=== PATIENT | female | born 1930 | race Caucasian/White ===

== ENCOUNTER 2017-09-16 12:52 | Observation (INO) | payer MEDICARE, BC ==
--- NOTE | 2017-09-16 13:38 | EDM.PDOC ---
ED HPI GENERAL MEDICAL PROBLEM - General Chief Complaint: Gastrointestinal Problem Stated Complaint: N/V diarrhea, dizziness Time Seen by Provider: 09/16/17 13:37 Source of Information: Reports: Patient, Family, Old Records, RN, RN Notes Reviewed History Limitations: Reports: No Limitations - History of Present Illness INITIAL COMMENTS - FREE TEXT/NARRATIVE: Arrives from home by POV with c/o waking this morning with a mild generalized headache, and sudden onset of "room spin" dizziness with severe nausea and vomiting. Pt states the Sx's have been persistent all day, usually when she moves or turns her head. Denies fever, chills, falls, or any other Sx's. Onset: Today, Sudden Duration: Constant, Waxing/Waning Location: Reports: Generalized Severity: Severe Improves with: Reports: Immobilization Worsens with: Reports: Movement Associated Symptoms: Reports: No Other Symptoms - Related Data Allergies Allergy/AdvReac Type Severity Reaction Status Date / Time amoxicillin trihydrate Allergy Diarrhea Verified 09/16/17 13:58 [From Augmentin] potassium clavulanate Allergy Diarrhea Verified 09/16/17 13:58 [From Augmentin] Ejunkvl-Sur-Xxd Reductase Allergy Muscle Verified 09/16/17 13:58 Inhibitor Aches Sulfa (Sulfonamide Allergy Rash Verified 09/16/17 13:58 Antibiotics) Home Meds: Home Meds Butalbital/Aspirin/Caffeine [Fiorinal 50-325-40 MG] 1 tab PO BID PRN 04/29/15 [ History] Calcium Carbonate [Calcium] 1,200 mg PO DAILY 04/29/15 [History] Fenofibrate,Micronized [Fenofibrate] 134 mg PO DAILY 04/29/15 [History] Fish Oil/[place]-3 Fatty Acids [Fish Oil 1,000 MG] 2 cap PO DAILY 04/29/15 [ History] Levothyroxine [Synthroid] 100 mcg PO DAILY 04/29/15 [History] Lutein/Minerals/Vit A,C & E [I-Dorothy] 1 tab PO DAILY 04/29/15 [History] amLODIPine [Norvasc] 10 mg PO DAILY 04/29/15 [History] Isosorbide Mononitrate [Isosorbide Mononitrate ER] 30 mg PO DAILY 09/16/17 [ History] Past Medical History Other HEENT History: WEARS CORRECTIVE LENSES Cardiovascular History: Reports: Angina Other Endocrine/Metabolic History: HYPOTHYRIODISM - Past Surgical History Other HEENT Surgeries/Procedures: RIGHT EYE Other Oncologic Surgeries/Procedures: BENIGN BIOPSY BILAT BREAST Social & Family History - Family History Family Medical History: Noncontributory - Tobacco Use Smoking Status *Q: Never Smoker Used Tobacco, but Quit: No Second Hand Smoke Exposure: No - Recreational Drug Use Recreational Drug Use: No - Living Situation & Occupation Living situation: Reports: , Alone Occupation: Retired ED ROS GENERAL - Review of Systems Review Of Systems: ROS reveals no pertinent complaints other than HPI. ED EXAM, GENERAL - Physical Exam Exam: See Below Exam Limited By: No Limitations General Appearance: Alert, WD/WN, No Apparent Distress, Other (frail, elderly appearing) Eye Exam: Bilateral Eye: EOMI, Nystagmus (lateral gaze), PERRL Ears: Normal External Exam, Normal Canal, Hearing Grossly Normal, Normal TMs Nose: Normal Inspection, Normal Mucosa, No Blood Throat/Mouth: Normal Lips, Normal Teeth, Normal Gums, Normal Oropharynx, Normal Voice, No Airway Compromise, Other (dry oral membranes) Head: Atraumatic, Normocephalic Neck: Normal Inspection, Supple, Non-Tender, Full Range of Motion. No: Carotid Bruit, Lymphadenopathy (L), Lymphadenopathy (R) Respiratory/Chest: No Respiratory Distress, Lungs Clear, Normal Breath Sounds, No Accessory Muscle Use, Chest Non-Tender Cardiovascular: Regular Rate, Rhythm, No Edema GI/Abdominal: Normal Bowel Sounds, Soft, No Distention, Tender (mild epigastric tenderness). No: Guarding, Rigid, Rebound (Female) Exam: Deferred Rectal (Female) Exam: Deferred Back Exam: Normal Inspection. No: CVA Tenderness (L), CVA Tenderness (R) Extremities: Normal Inspection, Normal Range of Motion, Non-Tender, Normal Capillary Refill, No Pedal Edema Neurological: Alert, Oriented, No Motor/Sensory Deficits Psychiatric: Normal Affect, Normal Mood Skin Exam: Warm, Dry, Intact, Normal Color, No Rash EKG INTERPRETATION EKG Date: 09/16/17 Time: 14:20 Rhythm: Other (SR) Rate (Beats/Min): 79 [place]: Normal P-Wave: Present QRS: Other (1st AV block, LAFB, PAC) ST-T: Normal QT: Normal Comparison: NA - No Prior EKG Course - Vital Signs Last Recorded V/S: Last Vital Signs Temp 36.7 C 09/16/17 13:30 Pulse 82 09/16/17 13:30 Resp 12 09/16/17 13:30 BP 117/67 09/16/17 13:30 Pulse Ox 94 L 09/16/17 13:30 - Orders/Labs/Meds Orders: Active Orders 24 hr Category Date Time Status EKG 12 Lead [EKG Documentation Completion] [] STAT Care 09/16/17 14:12 Active Peripheral IV Care [RC] . DIRECTED Care 09/16/17 14:10 Active UA W/MICROSCOPIC [URIN] Stat Lab 09/16/17 15:08 Received Sodium Chloride 0.9% [Normal Saline] 1,000 ml Med 09/16/17 14:15 Active IV ASDIRECTED Sodium Chloride 0.9% [Saline Flush] Med 09/16/17 14:10 Active 10 ml FLUSH ASDIRECTED PRN Peripheral IV Insertion Adult [OM.PC] Stat Oth 09/16/17 14:09 Ordered Medication Orders Sodium Chloride (Normal Saline) 1,000 mls @ 200 mls/hr IV ASDIRECTED DONTA Last Admin: 09/16/17 14:27 Dose: 200 mls/hr Sodium Chloride (Saline Flush) 10 ml FLUSH ASDIRECTED PRN PRN Reason: Keep Vein Open Last Admin: 09/16/17 14:27 Dose: 10 ml Labs: Laboratory Tests 09/16/17 09/16/17 09/16/17 Range/Units 14:20 14:20 14:20 WBC 6.9 (5.0-10.0) 10^3/uL RBC 4.07 L (4.2-5.4) 10^6/uL Hgb 12.5 (12.0-16.0) g/dL Hct 38.3 (37.0-47.0) % MCV 94.1 (80-100) fL MCH 30.7 (27.0-34.0) pg MCHC 32.6 L (33.0-35.0) g/dL Plt Count 214 (150-450) 10^3/uL Neut % (Auto) 82.3 H (42.2-75.2) % Lymph % (Auto) 10.9 L (20.5-50.1) % [place] % (Auto) 6.5 (2-8) % Eos % (Auto) 0.0 L (1.0-3.0) % Baso % (Auto) 0.3 (0.0-1.0) % Sodium 137 (135-145) mmol/L Potassium 4.0 (3.6-5.0) mmol/L Chloride 104 (101-111) mmol/L Carbon Dioxide 23.0 (21.0-31.0) mmol/L Anion Gap 14.0 BUN 19 H (7-18) mg/dL Creatinine 0.7 (0.6-1.3) mg/dL Est Cr Clr Drug Dosing 48.89 mL/min Estimated GFR (MDRD) > 60 BUN/Creatinine Ratio 27.14 Glucose 152 H (74-105) mg/dL Calcium 9.2 (8.4-10.2) mg/dl Magnesium 1.8 (1.8-2.5) mg/dL Total Bilirubin 0.6 (0.2-1.0) mg/dL AST 21 (10-42) IU/L ALT 18 (10-60) IU/L Alkaline Phosphatase 33 L (42-121) IU/L Troponin I < 0.02 (0.00-0.02) ng/ml C-Reactive Protein < 0.5 (0.0-1.3) mg/dL Total Protein 6.2 L (6.7-8.2) g/dl Albumin 3.6 (3.2-5.5) g/dl Globulin 2.6 Albumin/Globulin Ratio 1.38 Amylase 43 (28-100) U/L Lipase 19 L (22-51) U/L TSH, Ultra Sensitive 0.13 L (0.45-5.33) uIu/mL Meds: Medications Generic Name Dose Route Start Last Admin Trade Name Freq PRN Reason Stop Dose Admin Sodium Chloride 1,000 mls @ 200 mls/hr 09/16/17 14:15 09/16/17 14:27 Normal Saline IV 200 mls/hr ASDIRECTED DONTA Administration Sodium Chloride 10 ml 09/16/17 14:10 09/16/17 14:27 Saline Flush FLUSH 10 ml ASDIRECTED PRN Administration Keep Vein Open Discontinued Medications Generic Name Dose Route Start Last Admin Trade Name Freq PRN Reason Stop Dose Admin Dexamethasone 20 mg 09/16/17 15:20 Dexamethasone IVPUSH 09/16/17 15:21 ONETIME ONE Diazepam 2.5 mg 09/16/17 15:19 Valium IVPUSH 09/16/17 15:20 ONETIME ONE Meclizine HCl 25 mg 09/16/17 15:20 Antivert PO 09/16/17 15:21 ONETIME ONE Ondansetron HCl 4 mg 09/16/17 14:12 09/16/17 14:27 Zofran IV 09/16/17 14:13 4 mg ONETIME ONE Administration - Radiology Interpretation Free Text/Narrative:: CT Head: no acute bleed or CVA, chronic microvasc. disease, see Rad. report. Departure - Departure Time of Disposition: 15:37 (admitted to Dr. Doty) Disposition: Refer to Observation Clinical Impression: Vertigo, Vomiting, History of hypothyroidism, Low thyroid stimulating hormone ( TSH) level - Discharge Information Forms: ED Department Discharge - My Orders Last 24 Hours: My Active Orders 09/16/17 14:09 Peripheral IV Insertion Adult [OM.PC] Stat 09/16/17 14:10 Peripheral IV Care [RC] . DIRECTED Sodium Chloride 0.9% [Saline Flush] 10 ml FLUSH ASDIRECTED PRN 09/16/17 14:12 EKG 12 Lead [EKG Documentation Completion] [RC] STAT 09/16/17 14:15 Sodium Chloride 0.9% [Normal Saline] 1,000 ml IV ASDIRECTED 09/16/17 15:08 UA W/MICROSCOPIC [URIN] Stat - Assessment/Plan Last 24 Hours: My Active Orders 09/16/17 14:09 Peripheral IV Insertion Adult [OM.PC] Stat 09/16/17 14:10 Peripheral IV Care [RC] . DIRECTED Sodium Chloride 0.9% [Saline Flush] 10 ml FLUSH ASDIRECTED PRN 09/16/17 14:12 EKG 12 Lead [EKG Documentation Completion] [RC] STAT 09/16/17 14:15 Sodium Chloride 0.9% [Normal Saline] 1,000 ml IV ASDIRECTED 09/16/17 15:08 UA W/MICROSCOPIC [URIN] Stat
[2017-09-16] MEDS ORDERED: Sodium Chloride 0.9% 10 ML Syringe FLUSH PRN (14:10)
[2017-09-16] MEDS ORDERED: Ondansetron 4 MG/2 ML SDV IV ONE (14:12)
[2017-09-16] MEDS ORDERED: Sodium Chloride 0.9% 1,000 ML IV SCH ×2 (14:15→16:45)
[2017-09-16 14:52] LABS: CHLORIDE,CL 104 mmol/L (101-111); SODIUM,NA 137 mmol/L (135-145)
--- NOTE | 2017-09-16 15:03 | CT ---
Clinical history: 87-year-old female with vomiting and dizziness. Scan technique: Volume acquisition of data emergency unenhanced CT scan of the brain obtained with pa tient lying supine on the Siemens multi slice scanner [place], [place] . All data archived in the PACS system for storage and study (bone/brain windows). No previous CT or MRI images of the head and immediately available at this institution. Interpretation: Uniformly thick bony calvarium. Symmetric clear pneumatization of the paranasal and m astoid sinuses. Symmetric amador-white matter pattern with age appropriate atrophy and underlying mirror-image normal v entricular system. Physiologic midline pineal and symmetric choroid plexus calcifications. Subtle decreased attenuation in the posterior limb of the internal capsule, bilaterally and other ran domly scattered tiny microvascular ischemic changes. Cerebellar atrophy. Brainstem unremarkable. No abnormal extracerebral/intracranial epidural or subdural hematoma. No supratentorial or posterior fossa mass lesion. No sign of acute intracerebral/intraventricular/sub arachnoid bleed. CONCLUSION: Chronic microvascular ischemic changes and age-appropriate atrophy. No intracranial mass, hydrocephalus or evidence of acute bleed.
[2017-09-16] MEDS ORDERED: Meclizine 12.5 MG Tab PO ONE (15:20)
[2017-09-16] MEDS ORDERED: Dexamethasone 4 MG/ML SDV IVPUSH ONE (15:20)
[2017-09-16] MEDS ORDERED: Diazepam 5 MG Tab PO PRN (16:22)
[2017-09-16] MEDS ORDERED: LORazepam 0.5 MG Tab PO PRN ×2 (16:24→16:37)
[2017-09-16] MEDS ORDERED: Metoclopramide 10 MG Tab PO PRN (16:24)
[2017-09-16] MEDS ORDERED: Ondansetron 4 MG/2 ML SDV IVPUSH PRN (16:40)
[2017-09-16] MEDS ORDERED: Zolpidem 5 MG Tab PO PRN (16:40)
--- NOTE | 2017-09-16 16:50 | PCM.HP ---
H&P History of Present Illness - General Date of Service: 09/16/17 Admit Problem/Dx: Admission Diagnosis/Problem Admission Diagnosis/Problem Vertigo Source of Information: Patient, Provider (ER) - History of Present Illness Initial Comments - Free Text/Narative: The patient is an 87-year-old lady with a history of hypertension, anxiety, coronary artery disease, dyslipidemia. The patient developed sudden onset of vertigo associated with nausea. The vertigo is worse when moving the head sitting up. Better when not moving head. has nausea, had vomiting after eating No cough, no sore throat, no earache, no tinnitus. - Related Data Allergies/Adverse Reactions: Allergies Allergy/AdvReac Type Severity Reaction Status Date / Time amoxicillin trihydrate Allergy Diarrhea Verified 09/16/17 16:04 [From Augmentin] potassium clavulanate Allergy Diarrhea Verified 09/16/17 16:04 [From Augmentin] Jckferu-Ytd-Ovb Reductase Allergy Muscle Verified 09/16/17 16:04 Inhibitor Aches Sulfa (Sulfonamide Allergy Rash Verified 09/16/17 16:04 Antibiotics) Home Medications: Home Meds Butalbital/Aspirin/Caffeine [Fiorinal 50-325-40 MG] 1 tab PO BID PRN 04/29/15 [ History] Calcium Carbonate [Calcium] 1,200 mg PO DAILY 04/29/15 [History] Fish Oil/[place]-3 Fatty Acids [Fish Oil 1,000 MG] 2 cap PO DAILY 04/29/15 [ History] Lutein/Minerals/Vit A,C & E [I-Dorothy] 1 tab PO DAILY 04/29/15 [History] amLODIPine [Norvasc] 10 mg PO DAILY 04/29/15 [History] Fenofibrate Nanocrystallized [Fenofibrate] 145 mg PO DAILY 09/16/17 [History] Isosorbide Mononitrate [Isosorbide Mononitrate ER] 30 mg PO DAILY 09/16/17 [ History] LORazepam 0.5 mg PO .PRN PRN 09/16/17 [History] Levothyroxine 112 mcg PO DAILY 09/16/17 [History] Vitamin B Complex 1 each PO DAILY 09/16/17 [History] Past Medical History Other HEENT History: WEARS CORRECTIVE LENSES Cardiovascular History: Reports: Angina Other Endocrine/Metabolic History: HYPOTHYRIODISM - Past Surgical History Other HEENT Surgeries/Procedures: RIGHT EYE Other Oncologic Surgeries/Procedures: BENIGN BIOPSY BILAT BREAST Social & Family History - Family History Family Medical History: Noncontributory - Tobacco Use Smoking Status *Q: Never Smoker Used Tobacco, but Quit: No Second Hand Smoke Exposure: No - Caffeine Use Caffeine Use: Reports: Coffee, Soda - Recreational Drug Use Recreational Drug Use: No - Living Situation & Occupation Living situation: Reports: , Alone Occupation: Retired H&P Review of Systems - Review of Systems: Review Of Systems: See Below General: Denies: Fever, Chills Pulmonary: Denies: Shortness of Breath Cardiovascular: Denies: Chest Pain Gastrointestinal: Reports: Nausea. Denies: Abdominal Pain Psychiatric: Denies: Confusion Neurological: Reports: Headache (Earlier today, resolved by now), Other (Vertigo ). Denies: Numbness, Paresthesia, Seizure, Syncope, Tremors Exam - Exam Exam: See Below - Vital Signs Vital Signs: Last Vital Signs Temp 37.0 C 09/16/17 16:00 Pulse 87 09/16/17 16:00 Resp 20 09/16/17 16:00 BP 124/75 09/16/17 16:00 Pulse Ox 94 L 09/16/17 16:00 Weight: 71.214 kg - Exam General: Alert, Oriented Neck: Supple Lungs: Clear to Auscultation, Normal Respiratory Effort Cardiovascular: Regular Rate, Regular Rhythm GI/Abdominal Exam: Normal Bowel Sounds, Soft, Non-Tender Extremities: No Pedal Edema Skin: Warm, Dry Neurological: Cranial Nerves Intact, Strength Equal Bilateral, Normal Speech, Sensation Intact Neuro Extensive - Mental Status: Alert, Oriented x3 Neuro Extensive - Motor, Sensory, Reflexes: Other (Nystagmus). No: Receptive Aphasia, Expressive Aphasia, Tremor Psychiatric: Alert, Normal Affect, Normal Mood - Patient Data Result Diagrams: 09/16/17 14:20 09/16/17 14:20 *Q Meaningful Use (ADM) - VTE *Q VTE Criteria *Q: - Stroke *Q Stroke Criteria *Q: - AMI *Q AMI Criteria *Q: - Problem List (1) Vertigo SNOMED Code(s): 461211825 ICD Code: R42 - DIZZINESS AND GIDDINESS Status: Acute Current Visit: Yes (2) Vomiting SNOMED Code(s): 972597898 ICD Code: R11.10 - VOMITING, UNSPECIFIED Status: Acute Current Visit: Yes (3) History of hypothyroidism SNOMED Code(s): 876920813 ICD Code: Z86.39 - PERSONAL HISTORY OF ENDO, NUTRITIONAL AND METABOLIC DISEASE Status: Acute Current Visit: Yes Problem List Initiated/Reviewed/Updated: Yes Orders Last 24hrs: Active Orders 24 hr Category Date Time Status Patient Status [ADT] Routine ADT 09/16/17 16:40 Ordered Antiembolic Devices [RC] PER UNIT ROUTINE Care 09/16/17 16:42 Ordered Oxygen Therapy [RC] PRN Care 09/16/17 16:40 Ordered Up With Assistance [RC] ASDIRECTED Care 09/16/17 16:40 Ordered VTE/DVT Education [RC] PER UNIT ROUTINE Care 09/16/17 16:40 Ordered Vital Signs [RC] Q4H Care 09/16/17 16:40 Ordered Regular Diet [DIET] Diet 09/16/17 Dinner Ordered BASIC METABOLIC PANEL,BMP [CHEM] AM Lab 09/17/17 05:15 Ordered CBC WITH AUTO DIFF [HEME] AM Lab 09/17/17 05:15 Ordered Acetaminophen [Tylenol] Med 09/16/17 16:40 Ordered 650 mg PO Q4H PRN Aspirin Med 09/17/17 08:00 Ordered 81 mg PO WITHBREAKFAST Calcium Carbonate Med 09/17/17 09:00 Ordered 1,200 mg PO DAILY Fenofibrate Nanocrystallized [Tricor] Med 09/17/17 09:00 Ordered 145 mg PO DAILY Heparin Sodium Med 09/16/17 22:00 Ordered 5,000 units SUBCUT Q8HR Isosorbide Mononitrate [Imdur] Med 09/17/17 09:00 Ordered 30 mg PO DAILY LORazepam [Ativan] Med 09/16/17 16:37 Ordered 0.5 mg PO Q4H PRN Levothyroxine Med 09/17/17 06:00 Ordered 100 mcg PO ACBRK Lutein/Minerals/Vit A,C & E [I-Dorothy] Med 09/17/17 09:00 Ordered 1 tab PO DAILY Meclizine [Antivert] Med 09/16/17 21:00 Ordered 12.5 mg PO TID Metoclopramide [Reglan] Med 09/16/17 16:24 Ordered 10 mg PO Q8H PRN Ondansetron [Zofran] Med 09/16/17 16:40 Ordered 4 mg IVPUSH Q6H PRN Sodium Chloride 0.9% [Normal Saline] 1,000 ml Med 09/16/17 16:45 Ordered IV ASDIRECTED Zolpidem [Ambien] Med 09/16/17 16:40 Ordered 5 mg PO BEDTIME PRN amLODIPine [Norvasc] Med 09/17/17 09:00 Ordered 10 mg PO DAILY Antiembolic Hose [OM.PC] Per Unit Routine Oth 09/16/17 16:41 Ordered Resuscitation Status Routine Resus Stat 09/16/17 16:40 Ordered Medication Orders Acetaminophen (Tylenol) 650 mg PO Q4H PRN PRN Reason: Pain (Mild 1-3)/fever Amlodipine Besylate (Norvasc) 10 mg PO DAILY [facility] Aspirin (Aspirin) 81 mg PO WITHBREAKFAST [facility] Calcium Carbonate/Glycine (Tums) 1,000 mg PO DAILY [facility] Fenofibrate (Tricor) 145 mg PO DAILY [facility] Heparin Sodium (Porcine) (Heparin Sodium) 5,000 units SUBCUT Q8HR [facility] Sodium Chloride (Normal Saline) 1,000 mls @ 200 mls/hr IV ASDIRECTED DONTA Last Admin: 09/16/17 14:27 Dose: 200 mls/hr Sodium Chloride (Normal Saline) 1,000 mls @ 75 mls/hr IV ASDIRECTED [facility] Isosorbide Mononitrate (Imdur) 30 mg PO ACBRK [facility] Levothyroxine Sodium (Levothyroxine) 100 mcg PO ACBRK [facility] Lorazepam (Ativan) 0.5 mg PO Q4H PRN PRN Reason: Anxiety, vertigo, nausea Meclizine HCl (Antivert) 12.5 mg PO TID [facility] Metoclopramide HCl (Reglan) 10 mg PO Q8H PRN PRN Reason: nausea, vertigo Multivitamins/Minerals (I-Dorothy) 1 each PO DAILY [facility] Ondansetron HCl (Zofran) 4 mg IVPUSH Q6H PRN PRN Reason: Nausea/Vomiting Sodium Chloride (Saline Flush) 10 ml FLUSH ASDIRECTED PRN PRN Reason: Keep Vein Open Last Admin: 09/16/17 14:27 Dose: 10 ml Zolpidem Tartrate (Ambien) 5 mg PO BEDTIME PRN PRN Reason: Sleep Assessment/Plan Comment:: The patient is an 87-year-old lady with a history of hypertension, anxiety, coronary artery disease, dyslipidemia. The patient developed sudden onset of vertigo associated with nausea. The vertigo is worse when moving the head sitting up. Better when not moving head. has nausea, had vomiting after eating No cough, no sore throat, no earache, no tinnitus. In the ER the patient received diazepam, meclizine, dexamethasone. This resulted in mild improvement. #1 vertigo, nausea Likely due to benign positional vertigo Less likely stroke, middle ear infection. Will treat the patient with meclizine, metoclopramide, Ativan when necessary Will hydrate the patient #2 coronary artery disease Treat with aspirin, Imdur, #3 hypertension Continue Norvasc #4 hypothyroidism TSH is slightly low Will decrease the Synthroid Follow as outpatient #4 DVT prophylaxis Will use subcutaneous heparin
[2017-09-16] MEDS: Meclizine 12.5 MG Tab PO SCH (21:36)
[2017-09-16] MEDS: Heparin Sodium 5,000 Units/ML Vial SUBCUT SCH (21:36)
[2017-09-16] MEDS: Acetaminophen 325 MG Tab PO PRN (21:37)
[2017-09-17] MEDS ORDERED: Levothyroxine 112 MCG Tab PO SCH (06:00)
[2017-09-17 06:31] LABS: CHLORIDE,CL 105 mmol/L (101-111); SODIUM,NA 137 mmol/L (135-145)
[2017-09-17] MEDS: Heparin Sodium 5,000 Units/ML Vial SUBCUT SCH ×3 (07:14→21:15)
[2017-09-17] MEDS: Levothyroxine 112 MCG Tab PO SCH (07:15)
[2017-09-17] MEDS: Acetaminophen 325 MG Tab PO PRN ×3 (07:16→21:16)
[2017-09-17] MEDS: Isosorbide Mononitrate 30 MG Tab.ER PO SCH (07:47)
[2017-09-17] MEDS: Aspirin 81 MG Tab.Chew PO SCH (07:53)
[2017-09-17] MEDS: Meclizine 12.5 MG Tab PO SCH ×3 (08:48→21:16)
[2017-09-17] MEDS: Calcium Carbonate 500 MG Tab.Chew PO SCH (08:48)
[2017-09-17] MEDS: amLODIPine 5 MG Tab PO SCH (08:48)
[2017-09-17] MEDS: Fenofibrate Nanocrystallized 145 MG Tab PO SCH (08:49)
[2017-09-17] MEDS: Lutein/Minerals/Vit A,C & E Tab PO SCH (08:49)
--- NOTE | 2017-09-17 10:18 | PCM.PN ---
- General Info Date of Service: 09/17/17 Admission Dx/Problem (Free Text): Admission Diagnosis/Problem Admission Diagnosis/Problem Vertigo Subjective Update: Feeling better but still has moderate vertigo that is worse with activity. Started before admission. Less associated nausea. No abdominal pain. No motor weakness - Review of Systems General: Denies: Fever Pulmonary: Denies: Shortness of Breath Cardiovascular: Denies: Chest Pain, Palpitations - Patient Data Vitals - Most Recent: Last Vital Signs Temp 36.9 C 09/17/17 07:51 Pulse 62 09/17/17 07:51 Resp 16 09/17/17 07:51 BP 134/62 09/17/17 08:48 Pulse Ox 98 09/17/17 07:51 Weight - Most Recent: 71.214 kg I&O - Last 24 Hours: Intake & Output 09/16/17 09/17/17 09/17/17 22:59 06:59 14:59 Intake Total 125 972 Output Total 800 400 Balance -675 572 Lab Results Last 24 Hours: Laboratory Results - last 24 hr 09/17/17 09/17/17 Range/Units 05:25 05:25 WBC 6.3 (5.0-10.0) 10^3/uL RBC 3.77 L (4.2-5.4) 10^6/uL Hgb 11.6 L (12.0-16.0) g/dL Hct 35.6 L (37.0-47.0) % MCV 94.4 (80-100) fL MCH 30.8 (27.0-34.0) pg MCHC 32.6 L (33.0-35.0) g/dL Plt Count 225 (150-450) 10^3/uL Neut % (Auto) 83.1 H (42.2-75.2) % Lymph % (Auto) 11.9 L (20.5-50.1) % [place] % (Auto) 4.8 (2-8) % Eos % (Auto) 0.0 L (1.0-3.0) % Baso % (Auto) 0.2 (0.0-1.0) % Sodium 137 (135-145) mmol/L Potassium 3.9 (3.6-5.0) mmol/L Chloride 105 (101-111) mmol/L Carbon Dioxide 24.0 (21.0-31.0) mmol/L Anion Gap 11.9 BUN 13 (7-18) mg/dL Creatinine 0.6 (0.6-1.3) mg/dL Est Cr Clr Drug Dosing 57.04 mL/min Estimated GFR (MDRD) > 60 Glucose 108 H (74-105) mg/dL Calcium 8.3 L (8.4-10.2) mg/dl Med Orders - Current: Current Medications Acetaminophen (Tylenol) 650 mg PO Q4H PRN PRN Reason: Pain (Mild 1-3)/fever Last Admin: 09/17/17 07:16 Dose: 650 mg Amlodipine Besylate (Norvasc) 10 mg PO DAILY [facility] Last Admin: 09/17/17 08:48 Dose: 10 mg Aspirin (Aspirin) 81 mg PO WITHBREAKFAST [facility] Last Admin: 09/17/17 07:53 Dose: 81 mg Calcium Carbonate/Glycine (Tums) 1,000 mg PO DAILY [facility] Last Admin: 09/17/17 08:48 Dose: 1,000 mg Fenofibrate (Tricor) 145 mg PO DAILY [facility] Last Admin: 09/17/17 08:49 Dose: 145 mg Heparin Sodium (Porcine) (Heparin Sodium) 5,000 units SUBCUT Q8HR [facility] Last Admin: 09/17/17 07:14 Dose: 5,000 units Sodium Chloride (Normal Saline) 1,000 mls @ 200 mls/hr IV ASDIRECTED [facility] Last Admin: 09/16/17 14:27 Dose: 200 mls/hr Sodium Chloride (Normal Saline) 1,000 mls @ 75 mls/hr IV ASDIRECTED [facility] Last Admin: 09/17/17 01:54 Dose: 75 mls/hr Isosorbide Mononitrate (Imdur) 30 mg PO ACBRK [facility] Last Admin: 09/17/17 07:47 Dose: 30 mg Levothyroxine Sodium (Levothyroxine) 100 mcg PO ACBRK [facility] Last Admin: 09/17/17 07:15 Dose: 100 mcg Lorazepam (Ativan) 0.5 mg PO Q4H PRN PRN Reason: Anxiety, vertigo, nausea Meclizine HCl (Antivert) 12.5 mg PO TID [facility] Last Admin: 09/17/17 08:48 Dose: 12.5 mg Metoclopramide HCl (Reglan) 10 mg PO Q8H PRN PRN Reason: nausea, vertigo Multivitamins/Minerals (I-Dorothy) 1 each PO DAILY DONTA Last Admin: 09/17/17 08:49 Dose: 1 each Ondansetron HCl (Zofran) 4 mg IVPUSH Q6H PRN PRN Reason: Nausea/Vomiting Sodium Chloride (Saline Flush) 10 ml FLUSH ASDIRECTED PRN PRN Reason: Keep Vein Open Last Admin: 09/16/17 14:27 Dose: 10 ml Zolpidem Tartrate (Ambien) 5 mg PO BEDTIME PRN PRN Reason: Sleep Discontinued Medications Dexamethasone (Dexamethasone) 20 mg IVPUSH ONETIME ONE Stop: 09/16/17 15:21 Last Admin: 09/16/17 15:36 Dose: 20 mg Diazepam (Valium) 2.5 mg IVPUSH ONETIME ONE Stop: 09/16/17 15:20 Last Admin: 09/16/17 15:36 Dose: 2.5 mg Diazepam (Valium.) 5 mg PO TID PRN PRN Reason: vertigo Levothyroxine Sodium (Levothyroxine) 112 mcg PO ACBRK DONTA Lorazepam (Ativan) 0.5 mg PO .PRN PRN PRN Reason: Anxiety Meclizine HCl (Antivert) 25 mg PO ONETIME ONE Stop: 09/16/17 15:21 Last Admin: 09/16/17 15:36 Dose: 25 mg Ondansetron HCl (Zofran) 4 mg IV ONETIME ONE Stop: 09/16/17 14:13 Last Admin: 09/16/17 14:27 Dose: 4 mg - Exam General: Alert, Oriented Neck: Supple Lungs: Clear to Auscultation, Normal Respiratory Effort Cardiovascular: Regular Rate, Regular Rhythm Extremities: No Pedal Edema - Problem List & Annotations (1) Vertigo SNOMED Code(s): 858313090 Code(s): R42 - DIZZINESS AND GIDDINESS Status: Acute Current Visit: Yes (2) Vomiting SNOMED Code(s): 758006292 Code(s): R11.10 - VOMITING, UNSPECIFIED Status: Acute Current Visit: Yes (3) History of hypothyroidism SNOMED Code(s): 562743045 Code(s): Z86.39 - PERSONAL HISTORY OF ENDO, NUTRITIONAL AND METABOLIC DISEASE Status: Acute Current Visit: Yes - Problem List Review Problem List Initiated/Reviewed/Updated: Yes - Plan Plan:: The patient is an 87-year-old lady with a history of hypertension, anxiety, coronary artery disease, dyslipidemia. The patient developed sudden onset of vertigo associated with nausea. The vertigo is worse when moving the head sitting up. Better when not moving head. has nausea, had vomiting after eating No cough, no sore throat, no earache, no tinnitus. In the ER the patient received diazepam, meclizine, dexamethasone. This resulted in mild improvement. #1 vertigo, nausea Likely due to benign positional vertigo Less likely stroke, middle ear infection. Appears improved Will continue to treat the patient with meclizine, metoclopramide, Ativan when necessary Will stop IVF #2 coronary artery disease Treat with aspirin, Imdur, #3 hypertension Continue Norvasc #4 hypothyroidism TSH is slightly low Decreased the Synthroid Follow as outpatient #4 DVT prophylaxis Will use subcutaneous heparin
[2017-09-18] MEDS: Heparin Sodium 5,000 Units/ML Vial SUBCUT SCH (06:30)
[2017-09-18] MEDS: Levothyroxine 112 MCG Tab PO SCH (06:31)
[2017-09-18] MEDS: Isosorbide Mononitrate 30 MG Tab.ER PO SCH (06:44)
[2017-09-18 07:36] VITALS: BP 121/70
[2017-09-18] MEDS: amLODIPine 5 MG Tab PO SCH (08:32)
[2017-09-18] MEDS: Calcium Carbonate 500 MG Tab.Chew PO SCH (08:33)
[2017-09-18] MEDS: Lutein/Minerals/Vit A,C & E Tab PO SCH (08:33)
[2017-09-18] MEDS: Aspirin 81 MG Tab.Chew PO SCH (08:33)
[2017-09-18] MEDS: Meclizine 12.5 MG Tab PO SCH (08:33)
[2017-09-18] MEDS: Fenofibrate Nanocrystallized 145 MG Tab PO SCH (08:33)
[2017-09-18] MEDS: Acetaminophen 325 MG Tab PO PRN (08:35)
--- NOTE | 2017-09-18 10:06 | PCM.DCSUM1 ---
Discharge Summary - Hospital Course Free Text/Narrative:: The patient is an 87-year-old lady with a history of hypertension, anxiety, coronary artery disease, dyslipidemia. The patient developed sudden onset of vertigo associated with nausea. The vertigo was worse when moving the head, sitting up. Better when not moving head. had nausea, had vomiting after eating No cough, no sore throat, no earache, no tinnitus. In the ER the patient received diazepam, meclizine, dexamethasone. This resulted in mild improvement. #1 vertigo, nausea Likely due to benign positional vertigo Less likely stroke, middle ear infection. much improved Treated the patient with meclizine, metoclopramide, Ativan when necessary #2 coronary artery disease Treat with aspirin, Imdur, #3 hypertension Continue Norvasc #4 hypothyroidism TSH is slightly low Decreased the Synthroid Follow as outpatient - Discharge Data Discharge Date: 09/18/17 Discharge Disposition: Home, Self-Care 01 Condition: Good - Discharge Diagnosis/Problem(s) (1) Vertigo SNOMED Code(s): 086113732 ICD Code: R42 - DIZZINESS AND GIDDINESS Status: Acute Current Visit: Yes (2) Vomiting SNOMED Code(s): 795309266 ICD Code: R11.10 - VOMITING, UNSPECIFIED Status: Acute Current Visit: Yes (3) History of hypothyroidism SNOMED Code(s): 527207698 ICD Code: Z86.39 - PERSONAL HISTORY OF ENDO, NUTRITIONAL AND METABOLIC DISEASE Status: Acute Current Visit: Yes - Discharge Plan Prescriptions/Med Rec: Aspirin 81 mg PO WITHBREAKFAST #30 tab.chew Levothyroxine Sodium [Levo-T] 100 mcg PO DAILY #30 tablet Meclizine [Antivert] 12.5 mg PO TID PRN #15 tablet PRN Reason: dizzy Home Medications: Home Meds Butalbital/Aspirin/Caffeine [Fiorinal 50-325-40 MG] 1 tab PO BID PRN 04/29/15 [ History] Calcium Carbonate [Calcium] 1,200 mg PO DAILY 04/29/15 [History] Fish Oil/[place]-3 Fatty Acids [Fish Oil 1,000 MG] 2 cap PO DAILY 04/29/15 [ History] Lutein/Minerals/Vit A,C & E [I-Dorothy] 1 tab PO DAILY 04/29/15 [History] amLODIPine [Norvasc] 10 mg PO DAILY 04/29/15 [History] Fenofibrate Nanocrystallized [Fenofibrate] 145 mg PO DAILY 09/16/17 [History] Isosorbide Mononitrate [Isosorbide Mononitrate ER] 30 mg PO DAILY 09/16/17 [ History] LORazepam 0.5 mg PO .PRN PRN 09/16/17 [History] Vitamin B Complex 1 each PO DAILY 09/16/17 [History] Aspirin 81 mg PO WITHBREAKFAST #30 tab.chew 09/18/17 [Rx] Levothyroxine Sodium [Levo-T] 100 mcg PO DAILY #30 tablet 09/18/17 [Rx] Meclizine [Antivert] 12.5 mg PO TID PRN #15 tablet 09/18/17 [Rx] Referrals: Mahogany Medina, RECYCLING OPERATOR [Primary Care Provider] - (in 2-3 days) - General Info Date of Service: 09/18/17 Subjective Update: Feeling well. Vertigo has resolved. ambulating steady. No nausea. No abdominal pain. No motor weakness Functional Status: Reports: Pain Controlled - Patient Data Vitals - Most Recent: Last Vital Signs Temp 37.0 C 09/18/17 07:35 Pulse 62 09/18/17 07:35 Resp 20 09/18/17 07:35 BP 121/70 09/18/17 08:32 Pulse Ox 95 09/18/17 07:35 Weight - Most Recent: 71.214 kg I&O - Last 24 hours: Intake & Output 09/17/17 09/18/17 09/18/17 21:59 06:59 14:59 Intake Total 240 Output Total Balance 240 Med Orders - Current: Current Medications Acetaminophen (Tylenol) 650 mg PO Q4H PRN PRN Reason: Pain (Mild 1-3)/fever Last Admin: 09/18/17 08:35 Dose: 650 mg Amlodipine Besylate (Norvasc) 10 mg PO DAILY [facility] Last Admin: 09/18/17 08:32 Dose: 10 mg Aspirin (Aspirin) 81 mg PO WITHBREAKFAST DONTA Last Admin: 09/18/17 08:33 Dose: 81 mg Calcium Carbonate/Glycine (Tums) 1,000 mg PO DAILY [facility] Last Admin: 09/18/17 08:33 Dose: 1,000 mg Fenofibrate (Tricor) 145 mg PO DAILY [facility] Last Admin: 09/18/17 08:33 Dose: 145 mg Heparin Sodium (Porcine) (Heparin Sodium) 5,000 units SUBCUT Q8HR [facility] Last Admin: 09/18/17 06:30 Dose: 5,000 units Isosorbide Mononitrate (Imdur) 30 mg PO [facility] Last Admin: 09/18/17 06:44 Dose: 30 mg Levothyroxine Sodium (Levothyroxine) [facility]cg [facility] Last Admin: 09/18/17 06:31 Dose: 100 mcg Lorazepam (Ativan) 0.5 mg PO Q4H PRN PRN Reason: Anxiety, vertigo, nausea Meclizine HCl (Antivert) 12.5 mg PO TID [facility] Last Admin: 09/18/17 08:33 Dose: 12.5 mg Metoclopramide HCl (Reglan) 10 mg PO Q8H PRN PRN Reason: nausea, vertigo Multivitamins/Minerals (I-Dorothy) 1 each PO DAILY [facility] Last Admin: 09/18/17 08:33 Dose: 1 each Ondansetron HCl (Zofran) 4 mg IVPUSH Q6H PRN PRN Reason: Nausea/Vomiting Sodium Chloride (Saline Flush) 10 ml FLUSH ASDIRECTED PRN PRN Reason: Keep Vein Open Last Admin: 09/16/17 14:27 Dose: 10 ml Zolpidem Tartrate (Ambien) 5 mg PO BEDTIME PRN PRN Reason: Sleep Discontinued Medications Dexamethasone (Dexamethasone) 20 mg IVPUSH ONETIME ONE Stop: 09/16/17 15:21 Last Admin: 09/16/17 15:36 Dose: 20 mg Diazepam (Valium) 2.5 mg IVPUSH ONETIME ONE Stop: 09/16/17 15:20 Last Admin: 09/16/17 15:36 Dose: 2.5 mg Diazepam (Valium.) 5 mg PO TID PRN PRN Reason: vertigo Sodium Chloride (Normal Saline) 1,000 mls @ 200 mls/hr IV ASDIRECTED [facility] Last Admin: 09/16/17 14:27 Dose: 200 mls/hr Sodium Chloride (Normal Saline) 1,000 mls @ 75 mls/hr IV ASDIRECTED [facility] Last Admin: 09/17/17 01:54 Dose: 75 mls/hr Levothyroxine Sodium (Levothyroxine) 112 mcg PO ACBRK DONTA Lorazepam (Ativan) 0.5 mg PO .PRN PRN PRN Reason: Anxiety Meclizine HCl (Antivert) 25 mg PO ONETIME ONE Stop: 09/16/17 15:21 Last Admin: 09/16/17 15:36 Dose: 25 mg Ondansetron HCl (Zofran) 4 mg IV ONETIME ONE Stop: 09/16/17 14:13 Last Admin: 09/16/17 14:27 Dose: 4 mg - Exam General: Reports: Alert, Oriented Neck: Reports: Supple Lungs: Reports: Clear to Auscultation, Normal Respiratory Effort Cardiovascular: Reports: Regular Rate, Regular Rhythm Extremities: Pedal Edema (Trace bilateral) Neurological: Reports: No New Focal Deficit, Normal Gait, Normal Speech Psy/Mental Status: Reports: Alert, Normal Affect, Normal Mood *Q Meaningful Use (DIS) - VTE *Q VTE Criteria *Q: - Stroke *Q Stroke Criteria *Q: - AMI *Q AMI Criteria *Q:
--- NOTE | 2017-09-21 10:39 | EKG ---
09/16/2017- JORGE LUIS SANDERS - FINDINGS: EKG per my reading shows sinus rhythm with first-degree AV block at a rate of 80. [facility] /[id number]
== END 2017-09-18 11:42 | disposition home or self-care (01) ==
LOC: DL.ED 12:52 → DL.MS 15:58 → UNDOADMOB 15:58 → DL.MS 16:40
PROVIDERS: ADMIT Internal Medicine; ATTEND Internal Medicine
DX: R42 Dizziness and giddiness (principal); R11.10 Vomiting, unspecified; I10 Essential (primary) hypertension; F41.9 Anxiety disorder, unspecified; I25.10 Atherosclerotic heart disease of native coronary artery without angina pectoris; E03.9 Hypothyroidism, unspecified; E78.5 Hyperlipidemia, unspecified; Z79.82 Long term (current) use of aspirin; Z79.899 Other long term (current) drug therapy; Z88.1 Allergy status to other antibiotic agents; Z88.8 Allergy status to other drugs, medicaments and biological substances; Z88.2 Allergy status to sulfonamides
CPT/HCPCS: 36415; 70450; 80048; 80053; 81001; 82150; 83690; 83735; 84443; 84484; 85025; 86140; 93005; 93010; 96361; 96372; 96374; 96375; 99285; A9270; G0378; J1100; J1644; J2405; J3360; J7030; J7050

== ENCOUNTER 2018-10-08 13:35 | Emergency (ER) | payer MEDICARE, BC ==
[2018-10-08] MEDS ORDERED: Magnesium Citrate Solution 296 ML Bottle PO ONE (13:36)
[2018-10-08 13:50] VITALS: BP 132/85
[2018-10-08] MEDS ORDERED: GI Cocktail Oral Solution 30 ML PO ONE (14:27)
[2018-10-08] MEDS ORDERED: Polyethylene Glycol 3350 Powder 17 GM Packet PO ONE (15:36)
[2018-10-08 15:37] LABS: ANION GAP 16.7; CHLORIDE,CL 103 mmol/L (101-111); SODIUM,NA 135 mmol/L (135-145)
--- NOTE | 2018-10-08 16:06 | EDM.PDOC ---
"ED HPI GENERAL MEDICAL PROBLEM - General Chief Complaint: Abdominal Pain Stated Complaint: PAINS IN ABD [id number] Time Seen by Provider: 10/08/18 13:58 Source of Information: Reports: Patient History Limitations: Reports: No Limitations - History of Present Illness INITIAL COMMENTS - FREE TEXT/NARRATIVE: Patient comes emergency department today with complaints of upper abdominal pain. Starting last evening the patient has had intermittent waves of pain in the epigastric and left and right upper quadrants of her abdomen. The pain waxes and wanes on its own and it kept her up most of the night. She has not had any fever or chills. No nausea no vomiting. No bloating sensation. No diarrhea. She has no other pain in her abdomen. She's never had pain like this before. No hematuria dysuria or urinary frequency. Her last bowel movement was this morning but rather small. She has struggled with some waxing and waning changes in her bowel habits over the past 3-6 months. She has had increased prevalence of constipation and has had to use some MiraLAX at home. She was actually concerned for colon cancer and she did a home colon cancer screening but she reports was negative. She has not had any black tarry stools. No weakness dizziness lightheadedness. No bharti blood in her stool. Upper Abdomen Pain Score (Numeric/FACES): 7 - Related Data Allergies Allergy/AdvReac Type Severity Reaction Status Date / Time amoxicillin trihydrate Allergy Diarrhea Verified 10/08/18 13:50 [From Augmentin] potassium clavulanate Allergy Diarrhea Verified 10/08/18 13:50 [From Augmentin] Uqlrhlg-Yml-Ewa Reductase Allergy Muscle Verified 10/08/18 13:50 Inhibitor Aches Sulfa (Sulfonamide Allergy Rash Verified 10/08/18 13:50 Antibiotics) Home Meds: Home Meds Butalbital/Aspirin/Caffeine [Fiorinal 50-325-40 MG] 1 tab PO BID PRN 04/29/15 [ History] Calcium Carbonate [Calcium] 1,200 mg PO DAILY 04/29/15 [History] Fish Oil/[place]-3 Fatty Acids [Fish Oil 1,000 MG] 2 cap PO DAILY 04/29/15 [ History] Lutein/Minerals/Vit A,C & E [I-Dorothy] 1 tab PO DAILY 04/29/15 [History] amLODIPine [Norvasc] 10 mg PO DAILY 04/29/15 [History] Fenofibrate Nanocrystallized [Fenofibrate] 145 mg PO DAILY 09/16/17 [History] Isosorbide Mononitrate [Isosorbide Mononitrate ER] 30 mg PO DAILY 09/16/17 [ History] LORazepam 0.5 mg PO .PRN PRN 09/16/17 [History] Vitamin B Complex 1 each PO DAILY 09/16/17 [History] Aspirin 81 mg PO WITHBREAKFAST #30 tab.chew 09/18/17 [Rx] Levothyroxine Sodium [Levo-T] 100 mcg PO DAILY #30 tablet 09/18/17 [Rx] Meclizine [Antivert] 12.5 mg PO TID PRN #15 tablet 09/18/17 [Rx] Past Medical History HEENT History: Reports: Impaired Vision Other HEENT History: WEARS CORRECTIVE LENSES Cardiovascular History: Reports: Angina Respiratory History: Reports: None Gastrointestinal History: Reports: Diverticulosis Genitourinary History: Reports: None HL7 INTERFACE DEVELOPER History: Reports: Other (See Below) Other HL7 INTERFACE DEVELOPER History: hysterectomy Musculoskeletal History: Reports: Arthritis Other Musculoskeletal History: Hip and back Neurological History: Reports: Headaches, Chronic, Vertigo Other Neuro History: headaches 10-15 times a month Psychiatric History: Reports: Anxiety Endocrine/Metabolic History: Reports: Hypothyroidism Other Endocrine/Metabolic History: HYPOTHYRIODISM Hematologic History: Reports: B12 Deficiency Immunologic History: Reports: None Oncologic (Cancer) History: Reports: None Dermatologic History: Reports: None - Infectious Disease History Infectious Disease History: Reports: None - Past Surgical History Head Surgeries/Procedures: Reports: None Other HEENT Surgeries/Procedures: RIGHT EYE Neurological Surgical History: Reports: None Other Oncologic Surgeries/Procedures: BENIGN BIOPSY BILAT BREAST Social & Family History - Family History Family Medical History: Noncontributory - Tobacco Use Smoking Status *Q: Never Smoker Second Hand Smoke Exposure: No - Caffeine Use Caffeine Use: Reports: Coffee - Recreational Drug Use Recreational Drug Use: No - Living Situation & Occupation Living situation: Reports: , Alone Occupation: Retired ED ROS GENERAL - Review of Systems Review Of Systems: ROS reveals no pertinent complaints other than HPI. ED EXAM, GI/ABD - Physical Exam Exam: See Below Exam Limited By: No Limitations General Appearance: Alert, WD/WN, No Apparent Distress Eyes: Bilateral: EOMI Respiratory/Chest: No Respiratory Distress, Lungs Clear, Normal Breath Sounds, No Accessory Muscle Use, Chest Non-Tender Cardiovascular: Normal Peripheral Pulses, Regular Rate, Rhythm, No Edema GI/Abdominal Exam: Soft, No Organomegaly, No Distention, No Mass, Tender (Mild tenderness in the epigastric right upper quadrant and left upper quadrant without guarding or rebound.). No: Distended, Guarding, Rigid, Rebound, Abnormal Bowel Sounds (Decreased throughout), Hernia, Mass Back Exam: Normal Inspection. No: CVA Tenderness (L), CVA Tenderness (R) Extremities: Normal Inspection, Normal Range of Motion, Non-Tender, Normal Capillary Refill Neurological: Alert, Oriented, Normal Cognition, Normal Gait, No Motor/Sensory Deficits Psychiatric: Normal Affect, Normal Mood Skin Exam: Warm, Dry, Intact, Normal Color, No Rash EKG INTERPRETATION EKG Date: 10/08/18 Time: 14:59 Rhythm: NSR Rate (Beats/Min): 82 [place]: Normal P-Wave: Present QRS: Normal ST-T: Normal QT: Normal Comparison: No Change Course - Vital Signs Last Recorded V/S: Last Vital Signs Temp 36.6 C 10/08/18 13:41 Pulse 84 10/08/18 13:41 Resp 16 10/08/18 13:41 BP 132/85 10/08/18 13:41 Pulse Ox 98 10/08/18 13:41 - Orders/Labs/Meds Orders: Active Orders 24 hr Category Date Time Status EKG 12 Lead [EKG Documentation Completion] [RC] URGENT Care 10/08/18 14:26 Active Enema [RC] ASDIRECTED Care 10/08/18 15:36 Active Abdomen 2V AP Flat Upright [CR] Urgent Exams 10/08/18 14:28 Taken Chest 2V [CR] Urgent Exams 10/08/18 14:27 Taken CULTURE URINE [RM] Stat Lab 10/08/18 15:45 Received Labs: Laboratory Tests 10/08/18 10/08/18 10/08/18 Range/Units 15:08 15:08 15:08 WBC 7.8 (5.0-10.0) 10^3/uL RBC 4.50 (4.2-5.4) 10^6/uL Hgb 13.7 (12.0-16.0) g/dL Hct 41.5 (37.0-47.0) % MCV 92.2 (80-100) fL MCH 30.4 (27.0-34.0) pg MCHC 33.0 (33.0-35.0) g/dL Plt Count 267 (150-450) 10^3/uL Neut % (Auto) 79.8 H (42.2-75.2) % Lymph % (Auto) 11.9 L (20.5-50.1) % [place] % (Auto) 8.0 (2-8) % Eos % (Auto) 0.0 L (1.0-3.0) % Baso % (Auto) 0.3 (0.0-1.0) % Sodium 135 (135-145) mmol/L Potassium 3.7 (3.6-5.0) mmol/L Chloride 103 (101-111) mmol/L Carbon Dioxide 19.0 L (21.0-31.0) mmol/L Anion Gap 16.7 BUN 13 (7-18) mg/dL Creatinine 0.7 (0.6-1.3) mg/dL Est Cr Clr Drug Dosing 47.97 mL/min Estimated GFR (MDRD) > 60 BUN/Creatinine Ratio 18.57 Glucose 103 (74-105) mg/dL Lactic Acid 0.9 (0.5-2.2) mmol/L Calcium 9.1 (8.4-10.2) mg/dl Total Bilirubin 0.8 (0.2-1.0) mg/dL AST 38 (10-42) IU/L ALT 13 (10-60) IU/L Alkaline Phosphatase 68 (42-121) IU/L Troponin I < 0.02 (0.00-0.02) ng/ml Total Protein 6.7 (6.7-8.2) g/dl Albumin 3.8 (3.2-5.5) g/dl Globulin 2.9 Albumin/Globulin Ratio 1.31 Urine Color (YELLOW) Urine Appearance (CLEAR) Urine pH (5.0-9.0) Ur Specific [place] (1.005-1.030) Urine Protein (NEGATIVE) Urine Glucose (UA) (NEGATIVE) Urine Ketones (NEGATIVE) Urine Occult Blood (NEGATIVE) Urine Nitrite (NEGATIVE) Urine Bilirubin (NEGATIVE) Urine Urobilinogen (0.2-1.0) mg/dL Ur Leukocyte Esterase (NEGATIVE) Urine RBC /HPF Urine WBC (0-5/HPF) /HPF Ur Epithelial Cells /HPF Urine Bacteria (0-FEW/HPF) /HPF 10/08/18 Range/Units 15:45 WBC (5.0-10.0) 10^3/uL RBC (4.2-5.4) 10^6/uL Hgb (12.0-16.0) g/dL Hct (37.0-47.0) % MCV (80-100) fL MCH (27.0-34.0) pg MCHC (33.0-35.0) g/dL Plt Count (150-450) 10^3/uL Neut % (Auto) (42.2-75.2) % Lymph % (Auto) (20.5-50.1) % [place] % (Auto) (2-8) % Eos % (Auto) (1.0-3.0) % Baso % (Auto) (0.0-1.0) % Sodium (135-145) mmol/L Potassium (3.6-5.0) mmol/L Chloride (101-111) mmol/L Carbon Dioxide (21.0-31.0) mmol/L Anion Gap BUN (7-18) mg/dL Creatinine (0.6-1.3) mg/dL Est Cr Clr Drug Dosing mL/min Estimated GFR (MDRD) BUN/Creatinine Ratio Glucose (74-105) mg/dL Lactic Acid (0.5-2.2) mmol/L Calcium (8.4-10.2) mg/dl Total Bilirubin (0.2-1.0) mg/dL AST (10-42) IU/L ALT (10-60) IU/L Alkaline Phosphatase (42-121) IU/L Troponin I (0.00-0.02) ng/ml Total Protein (6.7-8.2) g/dl Albumin (3.2-5.5) g/dl Globulin Albumin/Globulin Ratio Urine Color Yellow (YELLOW) Urine Appearance Slightly cloudy (CLEAR) Urine pH 5.5 (5.0-9.0) Ur Specific [place] >= 1.030 (1.005-1.030) Urine Protein 30 H (NEGATIVE) Urine Glucose (UA) Negative (NEGATIVE) Urine Ketones Trace H (NEGATIVE) Urine Occult Blood Negative (NEGATIVE) Urine Nitrite Negative (NEGATIVE) Urine Bilirubin Negative (NEGATIVE) Urine Urobilinogen 0.2 (0.2-1.0) mg/dL Ur Leukocyte Esterase Small H (NEGATIVE) Urine RBC 0-5 /HPF Urine WBC 10-20 H (0-5/HPF) /HPF Ur Epithelial Cells Moderate H /HPF Urine Bacteria Many H (0-FEW/HPF) /HPF Meds: Medications Discontinued Medications Generic Name Dose Route Start Last Admin Trade Name Keisha PRN Reason Stop Dose Admin Al Hydroxide/Mg Hydroxide 30 ml 10/08/18 14:27 10/08/18 14:47 Gi Cocktail PO 10/08/18 14:28 30 ml ONETIME ONE Administration Magnesium Citrate Confirm 10/08/18 16:07 10/08/18 16:37 Citrate Of Magnesia Administered 10/08/18 16:08 Not Given Dose 296 ml .ROUTE .STK-MED ONE Polyethylene Glycol 34 gm 10/08/18 15:36 Miralax PO 10/08/18 15:37 ONETIME ONE - Radiology Interpretation Free Text/Narrative:: [facility] Final Radiology Report Call: [phone] assistance Online chat: [email or web address] Name: JORGE LUIS SANDERS Age: 88Years F Date: 10/08/2018 SSN: -- : [id number] Study: XR CHEST 2 VIEWS Requesting Physician: BABAK GILLESPIE Images: 2 Addl Studies: Provided Clinical History: Contrast: Contrast Medium: Contrast Amount: Contrast Method: CONFIDENTIALITY STATEMENT This report is intended only for use by the referring physician, and only in accordance with law. If you received this in error, call [phone]. Page 1 of 1 EXAM: XR Chest, 2 Views EXAM DATE/TIME: 10/08/2018 2:30 PM CLINICAL HISTORY: 88 years old, female; Signs and symptoms; Other: Epigastric pain with insiration TECHNIQUE: Imaging protocol: XR of the chest, 2 views. COMPARISON: CT Chest w Cont 07/25/2017 4:23 PM FINDINGS: Lungs: The lungs are hyperinflated, consistent with underlying small airways disease. Atelectatic changes in both lung bases without focal pneumonia. Pleural space: Unremarkable. No pleural effusion. No pneumothorax. Heart/Mediastinum: Unremarkable. No cardiomegaly. Bones/joints: The thoracic spine demonstrates mild degenerative changes at multiple levels. IMPRESSION: 1. The lungs are hyperinflated, consistent with underlying small airways disease. 2. Atelectatic changes in both lung bases without focal pneumonia. Thank you for allowing us to participate in the care of your patient. Dictated and Authenticated by: Reynaldo Rodriguez DO 10/08/2018 2:50 PM Central Time ([place] & [place]) [facility] Final Radiology Report Call: [phone] assistance Online chat: [email or web address] Name: JORGE LUIS SANDERS Age: 88Years F Date: 10/08/2018 SSN: -- : [id number] Study: XR ABDOMEN 3 OR MORE VIEWS Requesting Physician: BABAK GILLESPIE Images: 2 Addl Studies: Provided Clinical History: Contrast: Contrast Medium: Contrast Amount: Contrast Method: Page 1 of 2 EXAM: XR Abdomen, 3 or More Views EXAM DATE/TIME: 10/08/2018 2:34 PM CLINICAL HISTORY: 88 years old, female; Signs and symptoms; Other: Epigastric pain TECHNIQUE: Imaging protocol: Frontal view of the abdomen/pelvis with upright view of the abdomen and one or more additional views. COMPARISON: No relevant prior studies available. FINDINGS: Gastrointestinal tract: A large amount of stool is noted throughout the colon. The bowel gas pattern is nonobstructive and nonspecific. Intraperitoneal space: Normal. No free air. Bones/joints: Scoliotic curvature of the thoracic lumbar spine present. The lumbar spine demonstrates moderate degenerative changes at multiple levels. IMPRESSION: 1. A large amount of stool is noted throughout the colon. 2. The bowel gas pattern is nonobstructive and nonspecific. Thank you for allowing us to participate in the care of your patient. Dictated and Authenticated by: Reynaldo Rodriguez DO JORGE LUIS SANDERS | Final Radiology Report CONFIDENTIALITY STATEMENT This report is intended only for use by the referring physician, and only in accordance with law. If you received this in error, call [phone]. Page 2 of 2 10/08/2018 2:49 PM Central Time ([place] & [place]) - Re-Assessments/Exams Free Text/Narrative Re-Assessment/Exam: 10/08/18 17:03 GI cocktail without any change in symptoms. 10/08/18 17:03 Her laboratory evaluation is rather unremarkable. She does have a small amount of leukocytes and WBCs although she does not complain of hematuria dysuria or urinary frequency. X-ray of her abdomen is quite concerning for constipation. She does relate that she has had some changes in her bowels over the past couple months and has been struggling with constipation. I would like to resume MiraLAX and enema. Although she states that her pain is getting a little bit better and she would prefer not to do an enema. I believe that this is fine at this time. I will send her home with some MiraLAX as well as some magnesium citrate. Changes in the bowels are deftly something to be concerned about at her age for colon cancer this is something that she should follow-up with her primary care provider for. She does not want to have a colonoscopy and would not receive any therapy if she had colon cancer anyways. We'll treat her symptomatically at this time she is comfortable with this plan and her questions are answered. Departure - Departure Time of Disposition: 16:01 Disposition: Home, Self-Care 01 Clinical Impression: Abdominal pain Qualifiers: Abdominal location: unspecified location Qualified Code(s): R10.9 - Unspecified abdominal pain - Discharge Information Instructions: Constipation, Adult, Eazb-pv-Ekal, Abdominal Pain, Adult, Easy-to -Read Referrals: Mahogany Medina RAFTER CUTTING MACHINE OPERATOR [Primary Care Provider] - Forms: ED Department Discharge Additional Instructions: Increase fluids over the next few days. Miralax, 1 capful daily with a large glass of water. Increase by 1 capful every 2 days until easy smooth bowel movements. i.e. day 6, 3 capfuls etc. OTC no prescription needed. Start tomorrow. Magnesium Citrate. 1/2 bottle when you get home and finish the bottle in 1 hour after that. Bottle sent home from the ED. Slowly decrease the miralax until easy smooth bowel movements kind of have to play with it to get a best therapeutic effect each patient is different. Return to the ED if new or worsening symptoms. Follow up with PCP in the next 4-6 days if not improving sooner if worse. - My Orders Last 24 Hours: My Active Orders 10/08/18 14:26 EKG 12 Lead [EKG Documentation Completion] [RC] URGENT 10/08/18 14:27 Chest 2V [CR] Urgent 10/08/18 14:28 Abdomen 2V AP Flat Upright [CR] Urgent 10/08/18 15:36 Enema [RC] ASDIRECTED 10/08/18 15:45 CULTURE URINE [RM] Stat - Assessment/Plan Last 24 Hours: My Active Orders 10/08/18 14:26 EKG 12 Lead [EKG Documentation Completion] [RC] URGENT 10/08/18 14:27 Chest 2V [CR] Urgent 10/08/18 14:28 Abdomen 2V AP Flat Upright [CR] Urgent 10/08/18 15:36 Enema [RC] ASDIRECTED 10/08/18 15:45 CULTURE URINE [RM] Stat Assessment:: abd pain constipation constipation. Plan: Increase fluids over the next few days. Miralax, 1 capful daily with a large glass of water. Increase by 1 capful every 2 days until easy smooth bowel movements. i.e. day 6, 3 capfuls etc. OTC no prescription needed. Start tomorrow. Magnesium Citrate. 1/2 bottle when you get home and finish the bottle in 1 hour after that. Bottle sent home from the ED. Slowly decrease the miralax until easy smooth bowel movements kind of have to play with it to get a best therapeutic effect each patient is different. Return to the ED if new or worsening symptoms. Follow up with PCP in the next 4-6 days if not improving sooner if worse."
[2018-10-08] MEDS ORDERED: Magnesium Citrate Solution 296 ML Bottle ONE (16:07)
== END 2018-10-08 16:30 | disposition home or self-care (01) ==
LOC: DL.ED 13:35
DX: K59.00 Constipation, unspecified (principal); E03.9 Hypothyroidism, unspecified; Z88.1 Allergy status to other antibiotic agents; Z88.8 Allergy status to other drugs, medicaments and biological substances; Z88.2 Allergy status to sulfonamides; Z79.899 Other long term (current) drug therapy; Z79.82 Long term (current) use of aspirin
CPT/HCPCS: 36415; 71046; 74019; 80053; 81001; 83605; 84484; 85025; 87086; 93005; 99284; A9270